=== PATIENT | female | born 1955 | race Hispanic/Latino ===

== ENCOUNTER 2019-09-02 07:14 | Outpatient (CLI) | payer BC ==
--- NOTE | 2019-09-02 08:17 | ULT ---
Sonogram abdomen complete HISTORY: Abdominal pain. FINDINGS: Gallbladder has a normal appearance without evidence of stones. Common duct is 0.5 cm. Live r is diffusely echogenic without focal mass or intrahepatic biliary dilatation. No free fluid. The spleen, kidneys, and visualized portions of abdominal aorta, IVC, and pancreas are unremarkable. IMPRESSION: Hepatic steatosis. No evidence of gallstones or acute biliary obstruction.
== END 2019-09-02 07:15 | disposition home or self-care (01) ==
LOC: BICULT 07:14
PROVIDERS: ATTEND Family Medicine
DX: R10.30 Lower abdominal pain, unspecified (principal); K83.8 Other specified diseases of biliary tract; N39.0 Urinary tract infection, site not specified; K76.0 Fatty (change of) liver, not elsewhere classified
CPT/HCPCS: 76700

== ENCOUNTER 2022-08-24 21:22 | Emergency (ER) | payer OTHER, MEDICARE ==
[~2022-08-24 21:22] MED LIST: Iopamidol-370 76% 500 ML 1 ML ONE
[2022-08-24] MEDS ORDERED: Ondansetron ODT 4 MG TAB ONE (21:32)
[2022-08-24 22:07] LABS: #Basophils 0.1 thou/uL (0.0-0.2); #Eosinphils 0.1 thou/uL (0.0-0.7); #Lymphocytes 3.4 thou/uL (1.20-3.40); #Monocytes 0.5 thou/uL (0.11-0.59); %Basophils 0.9 % (0.0-1.0); %Eosinophils 1.9 % (0.0-10.0); %Lymphocytes 47.4 % (21.0-51.0); %Monocytes 7.4 % (0.0-10.0); %Neutrophils 42.5 % (42.0-75.0); Hemoglobin 14.4 g/dL (12.0-16.0); Mean Corpuscular HGB CONC 32.8 g/dL (32.0-36.0); Mean Corpuscular Hemoglobin 32.2 pg (27.0-31.0); Mean Corpuscular Volume 98.1 fL (78.0-98.0); Mean Platelet Volume 7.9 fL (7.4-10.4); Platelet Count 201 thou/uL (130-400); RBC Distribution Width 11.6 % (11.5-14.5); Red Blood Cell (RBC) Count 4.47 mill/uL (4.20-5.40); White Blood Cell (WBC) Count 7.1 thou/uL (4.8-10.8)
[2022-08-24 22:27] LABS: ALT (SGPT) 22 U/L (8-55); AST (SGOT) 19 U/L (5-34); Albumin 4.4 g/dL (3.4-4.8); Alkaline Phosphatase 131 U/L (40-110); Anion Gap 12 mmol/L (10-20); BUN (Urea Nitrogen) 14 mg/dL (9.8-20.1); Bilirubin, Total 0.4 mg/dL (0.2-1.2); Calc. Creatinine Clearance 0 mL/min (70-130); Calcium 9.7 mg/dL (7.8-10.44); Carbon Dioxide 25 mmol/L (23-31); Chloride 106 mmol/L (98-107); Estimated GFR 81; Globulin 3.2 g/dL (2.4-3.5); Glucose 124 mg/dL (80-115); Lipase 24 U/L (8-78); Potassium 3.6 mmol/L (3.5-5.1); Protein, Total 7.6 g/dL (5.8-8.1); Sodium 139 mmol/L (136-145)
[2022-08-24 22:28] LABS: PTT 35.6 sec (22.9-36.1); Prothrombin Time 12.9 sec (12.0-14.7)
[2022-08-24] MEDS ORDERED: Ondansetron PF 4 MG/2 ML Vial ONE (22:40)
[2022-08-24] MEDS ORDERED: Boostrix 0.5 ML (Tdap) VIAL (>/=7 yrs of age) ONE (22:40)
[2022-08-24] MEDS ORDERED: Morphine 4 MG/ML VIAL ONE (22:40)
[2022-08-24 23:52] LABS: Bilirubin Negative (Negative); Blood, Urine Negative (Negative); Clarity Clear (Clear); Glucose, Urine (Dipstick) Normal (Negative); Ketone, Urine Negative (Negative); Leukocyte Negative Leu/uL (Negative); Nitrite Negative (Negative); Protein, Urine (Dipstick) Negative (Neg-Trace); Urobilinogen Normal mg/dL (Less than 2)
[2022-08-24] MEDS ORDERED: HYDROcodone/Acetaminophen 5/325 mg Tablet ONE (23:55)
== END 2022-08-25 01:43 | disposition home or self-care (01) ==
LOC: ERS 21:22
DX: S06.9X9A Unspecified intracranial injury with loss of consciousness of unspecified duration, initial encounter (principal); S16.1XXA Strain of muscle, fascia and tendon at neck level, initial encounter; S90.32XA Contusion of left foot, initial encounter; V49.40XA Driver injured in collision with unspecified motor vehicles in traffic accident, initial encounter; Y92.410 Unspecified street and highway as the place of occurrence of the external cause
CPT/HCPCS: 36416; 70450; 71045; 71260; 72125; 74177; 80053; 81003; 83690; 85025; 85610; 85730; 90715; 93005; J2270; J2405; Q0162; Q9967

== ENCOUNTER 2022-08-31 05:39 | Day surgery (SDC) | payer MEDICARE ==
[2022-08-29 10:28] VITALS: BMI 36.6
[2022-08-31] MEDS ORDERED: Midazolam HCl 2 mg/2 ml Vial ONE (06:17)
[2022-08-31] MEDS ORDERED: fentaNYL Citrate/PF 100 MCG/2 ML SYRINGE ONE (06:18)
[2022-08-31] MEDS ORDERED: Acetaminophen 500 MG TAB ONE (06:46)
[2022-08-31] MEDS ORDERED: Ketorolac Tromethamine 30 MG/ML VIAL ONE ×2 (06:46→07:15)
[2022-08-31] MEDS ORDERED: Bupivacaine 0.25% HCL 30 ML VIAL ONE (06:55)
[2022-08-31] MEDS ORDERED: EPINEPHrine 1 MG/ML AMP ONE (06:55)
[2022-08-31] MEDS ORDERED: Rocuronium Bromide 10 MG/ML (10ML VIAL) ONE (07:15)
[2022-08-31] MEDS ORDERED: Lidocaine 1% MPF 2 ML VIAL ONE (07:15)
[2022-08-31] MEDS ORDERED: Ondansetron PF 4 MG/2 ML Vial ONE (07:15)
[2022-08-31] MEDS ORDERED: PHENYLEPHRINE-NS 100 MCG/ML 10 ML SYRINGE ONE (07:15)
[2022-08-31] MEDS ORDERED: NEOSTIGMINE 3 MG/3 ML SYR 3 MG/3 ML SYRINGE ONE (07:15)
[2022-08-31] MEDS ORDERED: PROPOFOL 200 MG/20 ML VIAL ONE (07:15)
[2022-08-31] MEDS ORDERED: Dexamethasone 20 MG/5 ML VIAL ONE (07:15)
[2022-08-31] MEDS ORDERED: Glycopyrrolate 0.2 MG/ML 5 ML SYRINGE ONE (07:15)
[2022-08-31] MEDS ORDERED: Sodium Chloride 0.9% 100 ML ONE (07:20)
[2022-08-31] MEDS ORDERED: CEFAZOLIN 2 GM VIAL ONE (07:20)
[2022-08-31] MEDS ORDERED: Fentanyl 100 MCG/2 ML VIAL ONE (10:04)
[2022-08-31] MEDS ORDERED: HYDROcodone/Acetaminophen 5/325 mg Tablet ONE (12:11)
== END 2022-08-31 12:58 | disposition home or self-care (01) ==
LOC: SDC 05:39
PROVIDERS: ATTEND Specialist
PROC: 0YU54JZ Supplement Right Inguinal Region with Synthetic Substitute, Percutaneous Endoscopic Approach (ICD-10-PCS; principal; 2022-08-31)
PROC: 8E0W4CZ Robotic Assisted Procedure of Trunk Region, Percutaneous Endoscopic Approach (ICD-10-PCS; 2022-08-31)
DX: K40.90 Unilateral inguinal hernia, without obstruction or gangrene, not specified as recurrent (principal); M19.90 Unspecified osteoarthritis, unspecified site; E66.01 Morbid (severe) obesity due to excess calories; Z68.36 Body mass index [BMI] 36.0-36.9, adult; Z79.84 Long term (current) use of oral hypoglycemic drugs; Z79.899 Other long term (current) drug therapy
CPT/HCPCS: 49650; C1781; J0171; J0690; J1100; J1885; J2250; J2405; J2704; J3010; J3490; S0020

== ENCOUNTER 2023-02-06 13:51 | Outpatient (CLI) | payer MEDICARE ==
[2023-02-06 15:19] LABS: #Eosinphils 0.1 10x3/uL (0.0-0.5); #Monocytes 0.3 10x3/uL (0.0-1.1); #Neutrophils 3.7 10x3/uL (1.5-8.4); %Basophils 0.3 % (0.0-2.0); %Eosinophils 2.1 % (0.0-6.0); %Lymphocytes 32.6 % (18.0-47.0); %Neutrophils 59.8 % (40.0-75.0); Hemoglobin 14.2 g/dL (12.0-15.5); Mean Corpuscular HGB CONC 33.6 g/dL (32.0-36.0); Mean Corpuscular Hemoglobin 31.1 pg (27.0-33.0); Mean Corpuscular Volume 92.6 fl (81.6-98.3); Mean Platelet Volume 10.4 fl (7.4-10.4); Platelet Count 216 10x3/uL (150-450); RBC Distribution Width 12.5 % (11.5-14.5); Red Blood Cell (RBC) Count 4.57 10x6/uL (3.90-5.03); White Blood Cell (WBC) Count 6.3 10x3/uL (3.5-10.5)
[2023-02-06 15:57] LABS: Anion Gap 14 mmol/L (10-20); BUN (Urea Nitrogen) 10 mg/dL (9.8-20.1); Calc. Creatinine Clearance 0 mL/min (70-130); Calcium 9.2 mg/dL (7.8-10.44); Carbon Dioxide 24 mmol/L (23-31); Chloride 105 mmol/L (98-107); Estimated GFR 89; Glucose 196 mg/dL (80-115); Potassium 3.5 mmol/L (3.5-5.1); Sodium 139 mmol/L (136-145)
== END 2023-02-06 13:52 | disposition home or self-care (01) ==
LOC: LABBT 13:51
PROVIDERS: ATTEND Specialist
DX: Z01.818 Encounter for other preprocedural examination (principal); K40.90 Unilateral inguinal hernia, without obstruction or gangrene, not specified as recurrent
CPT/HCPCS: 71046; 80048; 85025; 93005; 93010

== ENCOUNTER 2023-02-08 05:54 | Day surgery (SDC) | payer MEDICARE ==
[2023-02-06 12:44] VITALS: BMI 36.1
[2023-02-08] MEDS ORDERED: Bupivacaine/Epinephrine 0.25% 30 ML VIAL ONE (06:19)
[2023-02-08] MEDS ORDERED: Acetaminophen 500 MG TAB ONE (06:33)
[2023-02-08] MEDS ORDERED: Ketorolac Tromethamine 30 MG/ML VIAL ONE (06:33)
[2023-02-08] MEDS ORDERED: Dexmedetomidine 200 MCG/2 ML VIAL ONE (07:05)
[2023-02-08] MEDS ORDERED: fentaNYL PF 100 MCG/2 ML SYRINGE ONE (07:05)
[2023-02-08] MEDS ORDERED: CEFAZOLIN 2 GM VIAL ONE (07:35)
[2023-02-08] MEDS ORDERED: Sodium Chloride 0.9% 100 ML ONE (07:35)
[2023-02-08] MEDS ORDERED: PROPOFOL 200 MG/20 ML VIAL ONE (07:54)
[2023-02-08] MEDS ORDERED: Ondansetron PF 4 MG/2 ML Vial ONE (07:54)
[2023-02-08] MEDS ORDERED: Dexamethasone 20 MG/5 ML VIAL ONE (07:54)
[2023-02-08] MEDS ORDERED: Glycopyrrolate 0.2 MG/ML 5 ML SYRINGE ONE (07:54)
[2023-02-08] MEDS ORDERED: ePHEDrine 50 MG/ML VIAL ONE (07:54)
[2023-02-08] MEDS ORDERED: Rocuronium Bromide 10 MG/ML (10ML VIAL) ONE (07:54)
[2023-02-08] MEDS ORDERED: NEOSTIGMINE 3 MG/3 ML SYR 3 MG/3 ML SYRINGE ONE (07:54)
[2023-02-08] MEDS ORDERED: SUGAMMADEX SODIUM 200 MG/2 ML VIAL ONE (08:59)
== END 2023-02-08 12:10 | disposition home or self-care (01) ==
LOC: SDC 05:54
PROVIDERS: ATTEND Specialist
PROC: 0YU64JZ Supplement Left Inguinal Region with Synthetic Substitute, Percutaneous Endoscopic Approach (ICD-10-PCS; principal; 2023-02-08)
PROC: 8E0W4CZ Robotic Assisted Procedure of Trunk Region, Percutaneous Endoscopic Approach (ICD-10-PCS; 2023-02-08)
DX: K40.90 Unilateral inguinal hernia, without obstruction or gangrene, not specified as recurrent (principal); K66.0 Peritoneal adhesions (postprocedural) (postinfection); D17.79 Benign lipomatous neoplasm of other sites; M19.90 Unspecified osteoarthritis, unspecified site; E66.01 Morbid (severe) obesity due to excess calories; Z68.36 Body mass index [BMI] 36.0-36.9, adult; Z79.84 Long term (current) use of oral hypoglycemic drugs; Z79.899 Other long term (current) drug therapy; Z98.890 Other specified postprocedural states
CPT/HCPCS: 49650; C1781; J1100; J1885; J2405; J2704; J3490